=== PATIENT | male | born 1995 | race Caucasian/White ===

== ENCOUNTER 2017-01-09 22:26 | Emergency (ER) | payer OTHER ==
[~2017-01-09] VITALS: Ht 182.9 cm; Wt 96.0 kg
[~2017-01-09 22:26] MED LIST: ACYCLOVIR400 MG PO; AMOXICILLIN500 MG PO; AZITHROMYCIN500 MG PO; CLINDAMYCIN300 M1 PO; MUPIROCIN2 % EX; NAPROSYN500 MG PO; NO HOME MEDS; ROCEPHIN 2250 MG/VIA IM
[2017-01-09] MEDS ORDERED: ULTRAM50 M1 PO (23:32)
[2017-01-09 23:53] VITALS: BP 131/82
== END 2017-01-09 23:58 | disposition home or self-care (01) | DRG 605 ==
LOC: ED 22:26
DX: S40.011A Contusion of right shoulder, initial encounter (principal); X50.1XXA Overexertion from prolonged static or awkward postures, initial encounter; Y93.72 Activity, wrestling; Y92.009 Unspecified place in unspecified non-institutional (private) residence as the place of occurrence of the external cause